=== PATIENT | female | born 1980 | race Caucasian/White ===

== ENCOUNTER 2023-03-05 21:16 | Emergency (ER) | payer SELFPAY ==
[~2023-03-05] VITALS: Ht 165.1 cm; Wt 81.0 kg
[2023-03-05 21:19] VITALS: O2SAT 96
[2023-03-05 22:00] VITALS: TEMP 97.9
[2023-03-05] MEDS ORDERED: ONDANSETRON HCL 4MG/2ML INJ IV STA (23:02)
[2023-03-05] MEDS ORDERED: MORPHINE SULFATE 4 MG/ML CPJ (NOT FOR IM USE) IV STA (23:02)
[2023-03-05] MEDS ORDERED: LORAZEPAM 2MG/ML CPJ IV ONE (23:15)
[2023-03-06] MEDS ORDERED: LORAZEPAM 2MG/ML CPJ IV NR (01:45)
[2023-03-06] MEDS ORDERED: ONDANSETRON HCL 4MG/2ML INJ IV NR (01:45)
[2023-03-06] MEDS ORDERED: MORPHINE SULFATE 4 MG/ML CPJ (NOT FOR IM USE) IV NR (01:45)
[2023-03-06 02:10] VITALS: BP 130/80; PULSE 70; RESP 16
[2023-03-06] MEDS ORDERED: HYDR-4001 MT (04:41)
[2023-03-06] MEDS ORDERED: IBUP-2029 MT (04:41)
== END 2023-03-06 07:51 | disposition home or self-care (01) ==
LOC: ER 21:16
DX: M25.559 Pain in unspecified hip (principal)
CPT/HCPCS: 72170; 99284; 96374; 96375; J2060; J2405; J2270; Z7610